=== PATIENT | male | born 1985 | race Caucasian/White ===

== ENCOUNTER 2020-07-20 13:17 | Emergency (ER) | payer SELFPAY ==
[~2020-07-20] VITALS: Ht 165.1 cm; Wt 80.7 kg
[2020-07-20 13:20] VITALS: BP 119/83
--- NOTE | 2020-07-20 14:37 | NUR ---
PT TAKEN TO BED 12.
[2020-07-20] MEDS ORDERED: TETRACAINE HCL/PF 0.5% OPTH 4 ML BTL ONE (14:48)
[2020-07-20] MEDS ORDERED: FLUORESCEIN OPTH STRIP 1 MG ONE (14:48)
--- NOTE | 2020-07-20 14:55 | NUR ---
PATIENT PRESENTS TO ED WITH C/O PAIN, OD . 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 OD, READ AND TEARING . DENIES N/V/D; SKIN IS PINK/WARM/DRY; AAOX4 WITH EVEN AND STEADY GAIT; LUNGS CLEAR BL; HR EVEN AND REGULAR; PT DENIES ANY FEVER, CP, SOB, OR COUGH AT THIS TIME; PATIENT STATES PAIN OF 8/10 AT THIS TIME; VSS; PATIENT POSITIONED FOR COMFORT; HOB ELEVATED; BEDRAILS UP X2; BED DOWN. ER MD MADE AWARE OF PT STATUS.
--- NOTE | 2020-07-20 15:15 | NUR ---
JOSÉ MIGUEL PANDEY AT BEDSIDE FOR EXAM.
[2020-07-20 15:45] VITALS: BP 119/83
--- NOTE | 2020-07-20 15:45 | NUR ---
Patient discharged with v/s stable. Written and verbal after care instructions given and explained. Patient alert, oriented and verbalized understanding of instructions. Ambulatory with steady gait. All questions addressed prior to discharge. ID band removed. Patient advised to follow up with PMD. Rx of IBUPROFEN & ERYTHROMYCIN OPTH OINT given. Patient educated on indication of medication including possible reaction and side effects. Opportunity to ask questions provided and answered.
== END 2020-07-20 15:45 | disposition home or self-care (01) ==
LOC: MED 13:17
DX: S05.02XA Injury of conjunctiva and corneal abrasion without foreign body, left eye, initial encounter (principal); X58.XXXA Exposure to other specified factors, initial encounter; Y93.89 Activity, other specified; Y92.89 Other specified places as the place of occurrence of the external cause; Y99.8 Other external cause status
CPT/HCPCS: 99283